=== PATIENT | female | born 1990 | race African-American/Black ===

== ENCOUNTER 2017-01-09 21:41 | Emergency (ER) | payer SELFPAY ==
[~2017-01-09] VITALS: Ht 160 cm; Wt 58.0 kg
[~2017-01-09 21:41] MED LIST: AZIT250T43 PO; CEPH500C3 PO; LORTA5 PO
[2017-01-09 21:43] VITALS: BP 123/80; PULSE 119; RESP 18; TEMP 101; O2SAT 95
[2017-01-09] MEDS ORDERED: SODIUM CHLOR 0.9% 1000 ML INJ 1,000 ML IV ONE (22:56)
[2017-01-09] MEDS ORDERED: ACETAMINOPHEN 325 MG TAB PO ONE (23:00)
--- NOTE | 2017-01-09 23:06 | PD ---
HPI Chief Complaint: Medical Clearance Time Seen by Provider: 22:56 Travel History International Travel<30 days: No Contact w/Intl Traveler<30days: No Traveled to known affect area: No History of Present Illness HPI 26-year-old female patient presents to the ER today brought in by her significant other for several days of not feeling well, coughing, fevers, body aches, nausea, vomiting, diarrhea, states she has been having vaginal spotting. She also complains of suprapubic abdominal discomfort. She does not know any sick contacts. Modifying Factors: None Associated Signs & Symptoms: Malaise, fevers, coughing, body aches, nausea, vomiting, diarrhea, abdominal discomfort Risk Factors: None PFSH Past Medical History Anemia: Yes Asthma: Yes Blood Disorders: No Anxiety: Yes Cancer: No Cerebrovascular Accident: Yes (JAN 2015) Diabetes: No Diminished Hearing: No Hypertension: Yes Psychiatric: Yes (Depression) Immunizations Current: Yes Seizures: No Thyroid Disease: No Ulcer: No ?: Not LMP: 12/29/16 : 2 Para: 0 Miscarriage: 2 : 0 Ectopic : No Ovarian Cysts: Yes Dilation and Curettage (D&C): Yes (X2 ) Tubal Ligation: No Past Surgical History Gynecologic Surgery: Yes Hysterectomy: No Other Surgery: No Social History Alcohol Use: Yes (OCCASIONALLY ) Tobacco Use: Yes (1/2 PPD) Substance Use: No Allergies-Medications (Allergen,Severity, Reaction): Coded Allergies: sulfamethoxazole (Unverified Allergy, Severe, swelling, 01/09/17) trimethoprim (Unverified Allergy, Severe, swelling, 01/09/17) Reported Meds & Prescriptions Reported Meds & Active Scripts Active Review of Systems Except as stated in HPI: all other systems reviewed are Neg Physical Exam Narrative GENERAL: Well-developed young -[place] female patient who is currently in mild distress, appears tired, but awake and oriented 3. SKIN: Focused skin assessment warm/dry. HEAD: Atraumatic. Normocephalic. EYES: Pupils equal and round. No scleral icterus. No injection or drainage. ENT: No nasal bleeding or discharge. Mucous membranes pink and moist. NECK: Trachea midline. No JVD. CARDIOVASCULAR: Regular rate and rhythm. No murmur appreciated. RESPIRATORY: No accessory muscle use. Clear to auscultation. Breath sounds equal bilaterally. GASTROINTESTINAL: Abdomen soft, mild suprapubic tenderness without guarding or rebound, nondistended. Hepatic and splenic margins not palpable. MUSCULOSKELETAL: No obvious deformities. No clubbing. No cyanosis. No edema. NEUROLOGICAL: Awake and alert. No obvious cranial nerve deficits. Motor grossly within normal limits. Normal speech. PSYCHIATRIC: Appropriate mood and affect; insight and judgment normal. Data Data Last Documented VS Vital Signs Date Time Temp Pulse Resp B/P (MAP) Pulse Ox O2 Delivery O2 Flow Rate FiO2 01/10/17 01:40 01/09/17 23:55 16 01/09/17 23:54 99.0 01/09/17 23:20 92 96 Room Air Orders Orders Complete Blood Count With Diff (01/09/17 22:56) Comprehensive Metabolic Panel (01/09/17 22:56) Beta Hcg (Quant/Titer) (01/09/17 22:56) Lactic Acid Sepsis Protocol (01/09/17 22:56) Urinalysis - C+S If Indicated (01/09/17 22:56) Influenzae A/B Antigen (01/09/17 22:56) Blood Culture (01/09/17 22:56) Chest, Single Ap (01/09/17 22:56) Blood Glucose (01/09/17 22:56) Ecg Monitoring (01/09/17 22:56) Iv Access Insert/Monitor (01/09/17 22:56) Oximetry (01/09/17 22:56) Oxygen Administration (01/09/17 22:56) Acetaminophen (Tylenol) (01/09/17 23:00) Sodium Chlor 0.9% 1000 Ml Inj (Ns 1000 M (01/09/17 22:56) Labs Laboratory Tests Test 01/09/17 23:00 01/10/17 00:05 White Blood Count 11.5 TH/MM3 Red Blood Count 3.70 MIL/MM3 Hemoglobin 12.3 GM/DL Hematocrit 36.9 % Mean Corpuscular Volume 99.5 FL Mean Corpuscular Hemoglobin 33.2 PG Mean Corpuscular Hemoglobin Concent 33.3 % Red Cell Distribution Width 13.7 % Platelet Count 143 TH/MM3 Mean Platelet Volume 8.7 FL Neutrophils (%) (Auto) 77.5 % Lymphocytes (%) (Auto) 14.7 % Monocytes (%) (Auto) 7.4 % Eosinophils (%) (Auto) 0.1 % Basophils (%) (Auto) 0.3 % Neutrophils # (Auto) 8.9 TH/MM3 Lymphocytes # (Auto) 1.7 TH/MM3 Monocytes # (Auto) 0.9 TH/MM3 Eosinophils # (Auto) 0.0 TH/MM3 Basophils # (Auto) 0.0 TH/MM3 CBC Comment DIFF FINAL Differential Comment Blood Urea Nitrogen 5 MG/DL Creatinine 0.47 MG/DL Random Glucose 81 MG/DL Total Protein 8.1 GM/DL Albumin 3.9 GM/DL Calcium Level 8.7 MG/DL Alkaline Phosphatase 159 U/L Aspartate Amino Transf (AST/SGOT) 97 U/L Alanine Aminotransferase (ALT/SGPT) 63 U/L Total Bilirubin 0.5 MG/DL Sodium Level 137 MEQ/L Potassium Level 3.8 MEQ/L Chloride Level 103 MEQ/L Carbon Dioxide Level 22.4 MEQ/L Anion Gap 12 MEQ/L Estimat Glomerular Filtration Rate 191 ML/MIN Lactic Acid Level 2.2 mmol/L Human Chorionic Gonadotropin, Quant LESS THAN 1 MIU/ML Urine Color YELLOW Urine Turbidity CLEAR Urine pH 5.5 Urine Specific [place] 1.013 Urine Protein NEG mg/dL Urine Glucose (UA) NEG mg/dL Urine Ketones TRACE mg/dL Urine Occult Blood NEG Urine Nitrite NEG Urine Bilirubin NEG Urine Urobilinogen LESS THAN 2.0 MG/DL Urine Leukocyte Esterase NEG Urine RBC LESS THAN 1 /hpf Urine WBC LESS THAN 1 /hpf Urine Squamous Epithelial Cells <1 /hpf Urine Mucus FEW /lpf Microscopic Urinalysis Comment CATH-CULT NOT IND MDM Medical Decision Making Medical Screen Exam Complete: Yes Emergency Medical Condition: Yes Medical Record Reviewed: Yes Interpretation(s) Laboratory Tests Test 01/09/17 23:00 01/10/17 00:05 White Blood Count 11.5 TH/MM3 (4.0-11.0) Red Blood Count 3.70 MIL/MM3 (4.00-5.30) Platelet Count 143 TH/MM3 (150-450) Neutrophils (%) (Auto) 77.5 % (16.0-70.0) Neutrophils # (Auto) 8.9 TH/MM3 (1.8-7.7) Blood Urea Nitrogen 5 MG/DL (7-18) Creatinine 0.47 MG/DL (0.50-1.00) Alkaline Phosphatase 159 U/L (45-117) Aspartate Amino Transf (AST/SGOT) 97 U/L (15-37) Alanine Aminotransferase (ALT/SGPT) 63 U/L (10-53) Lactic Acid Level 2.2 mmol/L (0.4-2.0) Urine Ketones TRACE mg/dL (NEG) Urine Mucus FEW /lpf (OCC) Last 24 hours Impressions Chest X-Ray 01/09/17 1586 Signed Impressions: Service Date/Time: Monday, January 09, 2017 23:21 - CONCLUSION: Underinflation with bibasilar airspace opacity representing either atelectasis or airspace consolidation. Jesus Hood MD Differential Diagnosis UTI versus sepsis versus pneumonia versus viral syndrome versus influenza versus dehydration versus metabolic issues versus Narrative Course Chest x-ray was unremarkable. Patient is not by lab work. UA did not show signs UTI. She was influenza test negative. At this point, patient had been given IV fluids and vital signs are stable in the ER. She reports some improvement symptoms. Her lactate is elevated likely secondary to dehydration. I have discussed doing a pelvic exam with her. However, before I was able to get back to do a pelvic exam, patient states her ride was here to the nurse and decided to leave before exam was completed. Underlying acute processes cannot be completely ruled out in this case. She had left AGAINST MEDICAL ADVICE. AMA: The risks of leaving against medical advice without further evaluation treatment were discussed with the patient. These risks include cardiac dysfunction, cardiac dysrhythmia, possible heart attack, possible stroke or . The patient indicated understanding of these risks and appeared to have the capacity to make this decision. Diagnosis Primary Impression: Fever Disposition: 07 AGAINST MEDICAL ADVICE Condition: Stable Rebecca Mcdonald MD Jan 09, 2017 23:06
[2017-01-09 23:15] VITALS: RESP 16
[2017-01-09 23:20] VITALS: BP 113/62; PULSE 92; RESP 16; O2SAT 96
--- NOTE | 2017-01-09 23:28 | RADRPT ---
EXAM DATE/TIME: 01/09/2017 23:21 [facility] COMPARISON: CT THORAX W CONTRAST, November 27, 2015, 3:16. CHEST SINGLE AP, August 31, 2015, 22:21. INDICATIONS : Chest pain and coughing up phlegm MEDICAL HISTORY : TIA SURGICAL HISTORY : None. ENCOUNTER: Initial ACUITY: 1 day PAIN SCORE: 7/10 LOCATION: Bilateral chest FINDINGS: Portable AP view the chest demonstrates a normal-sized cardiac silhouette. Lungs are underinflated an d there is mild bibasilar opacity, left greater than right. No pleural effusion or pneumothorax is vi sualized. Bones and soft tissues demonstrate no acute finding. CONCLUSION: Underinflation with bibasilar airspace opacity representing either atelectasis or airspace consolidat ion. Jesus Hood MD on January 09, 2017 at 23:26 Board Certified Radiologist. This report was verified electronically.
[2017-01-09 23:35] LABS: AUTOMATED NEUTROPHIL # 8.9 TH/MM3 (1.8-7.7); BASOPHIL % 0.3 % (0.0-2.0); EOSINOPHIL % 0.1 % (0.0-4.0); HEMATOCRIT 36.9 % (35.0-46.0); HEMO FLAGS DIFF FINAL; LYMPH % 14.7 % (9.0-44.0); LYMPHOCYTE # 1.7 TH/MM3 (1.0-4.8); MEAN CELL VOLUME 99.5 FL (80.0-100.0); MEAN CORPUSCULAR HEMOGLOBIN 33.2 PG (27.0-34.0); MEAN CORPUSCULAR HGB CONC 33.3 % (32.0-36.0); MONO % 7.4 % (0.0-8.0); NEUT % 77.5 % (16.0-70.0); PLATELET COUNT 143 TH/MM3 (150-450); RED CELL DISTRIBUTION WIDTH 13.7 % (11.6-17.2); WHITE BLOOD COUNT 11.5 TH/MM3 (4.0-11.0)
[2017-01-09 23:48] LABS: ALT (GPT) 63 U/L (10-53); ANION GAP 12 MEQ/L (5-15); AST (GOT) 97 U/L (15-37); BICARBONATE 22.4 MEQ/L (21.0-32.0); BLOOD UREA NITROGEN 5 MG/DL (7-18); CHLORIDE 103 MEQ/L (98-107); GLOMERULAR FILTRATION RATE 191 ML/MIN (>89); POTASSIUM 3.8 MEQ/L (3.5-5.1); SODIUM (NA) 137 MEQ/L (136-145)
[2017-01-09 23:52] LABS: ALKALINE PHOSPHATASE 159 U/L (45-117); BETA HCG QUANT LESS THAN 1 MIU/ML (0-5); TOTAL BILIRUBIN ADULT 0.5 MG/DL (0.2-1.0)
[2017-01-09 23:54] VITALS: TEMP 99
[2017-01-09 23:55] VITALS: RESP 16
[2017-01-10 00:33] LABS: BLOOD, URINE NEG (NEG); GLUCOSE,URINE NEG (NEG); KETONE, URINE TRACE mg/dL (NEG); MUCUS URINE FEW /lpf (OCC); NITRITE,URINE NEG (NEG); PH, URINE 5.5 (5.0-8.5); SQUAMOUS EPITHELIAL CELL URINE <1 /hpf (0-5); URINE COLOR YELLOW (YELLW/STRAW)
[2017-01-10 00:34] LABS: COMMENT (UR) CATH-CULT NOT IND; CULTURE IF INDICATED CATH CULTURE NOT IND
[2017-01-10 01:24] LABS: LACTIC ACID GHOST NOT REPORTABLE
== END 2017-01-10 01:41 | disposition left against medical advice (07) ==
LOC: NEPC 21:41
DX: R50.9 Fever, unspecified (principal); J45.909 Unspecified asthma, uncomplicated; I10 Essential (primary) hypertension
CPT/HCPCS: 71010; 80053; 81001; 83605; 84702; 85025; 87040; 87804; 96360; 99284; J7030

== ENCOUNTER 2017-04-03 16:16 | Emergency (ER) | payer SELFPAY ==
[~2017-04-03] VITALS: Ht 160 cm; Wt 55.5 kg
[2017-04-03 16:17] VITALS: BP 126/93; PULSE 88; RESP 18; TEMP 98.1; O2SAT 98
== END 2017-04-03 16:30 | disposition left against medical advice (07) ==
LOC: NED 16:30
DX: M79.646 Pain in unspecified finger(s) (principal); Z53.21 Procedure and treatment not carried out due to patient leaving prior to being seen by health care provider
CPT/HCPCS: 99281